=== PATIENT | female | born 1970 | race African-American/Black ===

== ENCOUNTER 2016-08-20 23:41 | Emergency (ER) | payer OTHER, BC ==
[~2016-08-20] VITALS: Ht 165.1 cm; Wt 127.2 kg
[~2016-08-20 23:41] MED LIST: ONDA1TAB16 PO
[2016-08-21] VITALS: BP 129/85; PULSE 73; RESP 16; TEMP 97.5; O2SAT 98
[2016-08-21] MEDS ORDERED: ROSU10 PO (00:08)
[2016-08-21] MEDS ORDERED: LISI10TA3 PO (00:08)
[2016-08-21] MEDS ORDERED: ZETI10TA5 PO (00:08)
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
[2016-08-21 01:00] VITALS: BP 126/86; PULSE 72; RESP 16; O2SAT 98
== END 2016-08-21 01:14 | disposition home or self-care (01) ==
LOC: PHED 23:41
DX: M54.9 Dorsalgia, unspecified (principal); V89.2XXA Person injured in unspecified motor-vehicle accident, traffic, initial encounter; Y92.410 Unspecified street and highway as the place of occurrence of the external cause; I10 Essential (primary) hypertension; E78.5 Hyperlipidemia, unspecified
CPT/HCPCS: 99282